=== PATIENT | male | born 1995 | race Caucasian/White ===

== ENCOUNTER 2019-05-27 11:48 | Emergency (ER) | payer MEDICAID ==
[~2019-05-27] VITALS: Ht 182.9 cm; Wt 72.6 kg
[2019-05-27 11:57] VITALS: BP 122/70
== END 2019-05-27 13:18 | disposition home or self-care (01) ==
LOC: ER 11:48 → EDBD 11:48 → ER 13:18
DX: S29.012A Strain of muscle and tendon of back wall of thorax, initial encounter (principal); S21.90XA Unspecified open wound of unspecified part of thorax, initial encounter; R51 Headache; X58.XXXA Exposure to other specified factors, initial encounter; Y93.89 Activity, other specified; Y92.89 Other specified places as the place of occurrence of the external cause; Y99.8 Other external cause status
CPT/HCPCS: 70450; 71101; 72070